=== PATIENT | male | born 1955 | race Caucasian/White ===

== ENCOUNTER 2017-10-01 11:50 | Emergency (ER) | payer OTHER, SELFPAY ==
[2017-10-01 11:53] VITALS: BP 185/96; PULSE 86; RESP 20; TEMP 36.8; O2SAT 98; BMI 28.1
[2017-10-01 11:55] VITALS: BP 185/96; PULSE 85
[2017-10-01] MEDS: NITROGLYCERIN 0.4 MG SL TAB SL ×3 (11:55→12:20)
[2017-10-01] MEDS: ASPIRIN 325 MG TABLET PO (11:55)
[2017-10-01] MEDS: fentaNYL 100 MCG/2 ML INJ 50 MCG IV (12:05)
--- NOTE | 2017-10-01 12:08 | DI.RAD.S_ITS ---
PROCEDURE: XR CHEST 1V INDICATIONS: chest pain TECHNIQUE: One view of the chest was acquired. COMPARISON: None. FINDINGS: Surgical changes and devices: None. Lungs and pleura: No pleural effusions or pneumothorax. Lungs are clear. Mediastinum: Mediastinal contours appear normal. Heart size is normal. Bones and chest wall: No suspicious bony lesions. Overlying soft tissues appear unremarkable. IMPRESSION: No acute cardiopulmonary findings. Dictated by: Lacie Estevez M.D. on 10/01/2017 at 12:42 Approved by: Lacie Estevez M.D. on 10/01/2017 at 12:42
[2017-10-01 12:14] LABS: Add Manual Diff / Slide Review NO; Basophils Percent Auto 0.6 % (0-2); Hematocrit 45.8 % (41-53); Lymphocytes Percent Auto 39.3 % (25-40); Mean Corpuscular Hemoglobin 30.6 PG (26-34); Mean Corpuscular Volume 87.5 fL (80-100); Monocytes Percent Auto 7.6 % (3-14); Neutrophils Absolute Auto 4100 /uL (3000-5900); Neutrophils Percent Auto 50.5 % (50-75); Platelet Count 234 X10^3/uL (150-400); Red Blood Cell Count 5.24 X10^6/uL (4.5-5.9); Red Cell Distribution Width 13.4 % (11.6-14.8); White Blood Cell Count 8.2 X10^3/uL (4.5-11.0)
[2017-10-01 12:15] VITALS: BP 150/96; PULSE 88
[2017-10-01 12:20] VITALS: BP 135/68; PULSE 92
[2017-10-01] MEDS: HEPARIN DRIP 25,000 UNIT/500 ML IV.SOLN 26.127 UNIT IV (12:21)
[2017-10-01 12:22] VITALS: BP 135/68; PULSE 92; RESP 25; O2SAT 99
[2017-10-01 12:23] VITALS: BP 135/68; PULSE 81; RESP 20; O2SAT 99
[2017-10-01 12:26] LABS: BUN Creatinine Ratio 27.8 (6-22); Blood Urea Nitrogen 25 mg/dL (9-20); Calcium 9.7 mg/dL (8.4-10.2); Carbon Dioxide 23 mmol/L (22-32); Chloride 103 mmol/L (98-107); Estimated Glomerular Filt Rate > 60.0 mL/min (>60); Glucose 152 mg/dL (70-100); HEMOLYSIS < 15 (0-50); Potassium 3.5 mmol/L (3.4-5.1); Sodium 141 mmol/L (137-145)
[2017-10-01 12:38] LABS: Troponin I 0.019 ng/mL (0.01-0.034)
--- NOTE | 2017-10-01 12:42 | ED_ITS ---
HPI - Chest Pain General Chief Complaint: Chest Pain Stated Complaint: chest pain Time Seen by Provider: 10/01/17 12:04 History of Present Illness HPI narrative: HPI 61-year-old male presents for evaluation of 2+ hours of sharp, burning substernal chest pain rating to the bilateral arms and jaw without clear provoking or relieving factors. Patient notes a 10 year history of smoking in his youth, and a prior surgical resection for diverticulitis. Denies HTN, HLD, DM. M/S/F/SocHx notable for: please see HPI; remainder reviewed with patient and in chart. ROS: Negative constitutional, eye, cardiovascular, pulmonary, GI, , MSK, skin , neurologic, psychiatric, endocrine unless noted in the HPI. Exam Gen: pleasant, unwell appearing, resting in distress. HEENT: NC, AT, PEERL, EOMI. Resp: Clear to auscultation bilaterally, normal work of breathing, no accessory muscle usage. Card: Regular rate and rhythm with no murmurs, rubs, or gallops, extremities warm and well perfused. GI: Non-tender to palpation throughout all quadrants, no focal tenderness at McBurney's point, negative Morgan's sign, non-distended, no rebound or guarding. : No suprapubic tenderness to palpation. MSK: No visible deformities, strength and tone without visually appreciable deficit. Skin: Normal color with no visible lesions. Neuro: AO x 3, no facial asymmetry, vision and hearing WNL. Psych: Mood and affect appropriate. Labs / Imaging: EKG (11:56 AM): SR 90 bpm, [address] elevation in lead II, [address] elevation in lead III, [address] elevation aVF, [address] depression in V1, [address] depression in V2, [address] depression in V3, [address] depression in V4, [address] elevation in V6. WBC 8.2, Hb 16.0, sodium 141, potassium 3.5, troponin 0.019. CXR: No acute cardiopulmonary disease process. No focal infiltrate, cardiomegaly , rib fractures, or mediastinal widening, lung markings extend to the periphery bilaterally and there are no deep sulci. Radiologist's read pending. MDM Previous chart, nursing note, labs, imaging, and vitals reviewed. A: 61-year-old male presents for evaluation of 2+ hours of sharp, burning substernal chest pain rating to the bilateral arms and jaw without clear provoking or relieving factors. DDx: STEMI, NSTEMI, PE, dissection, Gerd, gastritis. Evaluation: EKG consistent with STEMI. Aspirin given, blood pressure elevated, nitroglycerin x 3 given with decrease in pain, IV fluids on for pressure support if needed (not required). Patient given fentanyl 50 ?g for pain control. Discussed patient at approximately 12:[address] Parker at [facility] who accepted the patient. EKG transmitted jointly reviewed. Heparin bolus followed by gtt ordered. Further antiplatelet agents declined by accepting facility. Patient transferred by ALS. Impression: STEMI (please reference below for remainder of encounter information) Critical Care Time Organ system(s): Cardiopulmonary Intervention: Assessment of the patient, interpretation of studies, communication related to patient care. Time: 30 minutes were spent directly related to patient care exclusive of separately billed procedures. Related Data Allergies Allergy/AdvReac Type Severity Reaction Status Date / Time codeine Allergy Verified 10/01/17 12:19 wool Allergy Verified 10/01/17 12:20 [facility] Social History Smoking Status: Former smoker Exam Initial Vital Signs Initial Vital Signs: Vital Signs Temperature 98.3 F 10/01/17 11:53 Pulse Rate 86 10/01/17 11:53 Respiratory Rate 20 10/01/17 11:53 Blood Pressure 185/96 H 10/01/17 11:53 Pulse Oximetry 98 10/01/17 11:53 Course Orders Ordered: ED Orders 10/01/17 11:55 EKG-12 Lead Routine 10/01/17 12:05 Basic Metabolic Panel Stat Complete Blood Count AUTO DIFF Stat Troponin I Stat 10/01/17 12:08 XR chest 1V Stat Fentanyl (Sublimaze) 50 mcg IV Q1H PRN PRN Reason: Pain, Severe Last Admin: 10/01/17 12:05 Dose: 50 mcg Heparin Sodium/Dextrose (Heparin Drip) 25,000 unit in 500 mls @ 26.127 mls/hr IV CONT NATE; Protocol Last Infusion: 10/01/17 12:23 Dose: 16 units/kg/hr, 26.127 mls/hr Admin: 10/01/17 12:21 Dose: 16 units/kg/hr, 26.127 mls/hr Discontinued Medications Aspirin (Aspirin) 325 mg PO NOW ONE Stop: 10/01/17 11:56 Last Admin: 10/01/17 11:55 Dose: 325 mg Heparin Sodium (Porcine) (Heparin) 5,000 unit IV NOW ONE Stop: 10/01/17 12:09 Last Admin: 10/01/17 12:21 Dose: Not Given Nitroglycerin (Nitrostat) 0.4 mg SL [id number] PRN PRN Reason: Chest Pain Last Admin: 10/01/17 12:20 Dose: 0.4 mg Admin: 10/01/17 12:15 Dose: 0.4 mg Admin: 10/01/17 11:55 Dose: 0.4 mg Vital Signs - 8 hr 10/01/17 11:53 10/01/17 11:55 10/01/17 12:15 Temperature 98.3 F Pulse Rate 86 85 88 Respiratory Rate 20 Blood Pressure 185/96 H 185/96 H 150/96 H Blood Pressure [Left Arm] Pulse Oximetry 98 10/01/17 12:20 10/01/17 12:22 10/01/17 12:23 Temperature Pulse Rate 92 H 92 H 81 Respiratory Rate 25 H 20 Blood Pressure 135/68 H 135/68 H Blood Pressure [Left Arm] 135/68 H Pulse Oximetry 99 99 MDM - Chest Pain Lab Data Result diagrams: 10/01/17 12:05 10/01/17 12:05 Lab Results 10/01/17 10/01/17 Range/Units 12:05 12:05 WBC 8.2 (4.5-11.0) X10^3/uL RBC 5.24 (4.5-5.9) X10^6/uL Hgb 16.0 (13.5-17.5) g/dL Hct 45.8 (41-53) % MCV 87.5 (80-100) fL MCH 30.6 (26-34) PG MCHC 35.0 (30-36) % RDW 13.4 (11.6-14.8) % Plt Count 234 (150-400) X10^3/uL Neut % (Auto) 50.5 (50-75) % Lymph % (Auto) 39.3 (25-40) % [place] % (Auto) 7.6 (3-14) % Eos % (Auto) 2.0 (2-4) % Baso % (Auto) 0.6 (0-2) % Neut # (Auto) 4100 (5829-6644) /uL Sodium 141 (137-145) mmol/L Potassium 3.5 (3.4-5.1) mmol/L Chloride 103 (98-107) mmol/L Carbon Dioxide 23 (22-32) mmol/L BUN 25 H (9-20) mg/dL Creatinine 0.90 (0.66-1.25) mg/dL Estimated GFR > 60.0 (>60) mL/min BUN/Creatinine Ratio 27.8 H (6-22) Glucose 152 H (70-100) mg/dL Calcium 9.7 (8.4-10.2) mg/dL Troponin I 0.019 (0.01-0.034) ng/mL Discharge Plan Departure Interventions: ED Discharge Assessment Last Done: 10/01/17 12:23
--- NOTE | 2017-10-01 12:52 | PC.NURSE ---
report given to osbaldo early at lab rn.
--- NOTE | 2017-10-01 12:57 | PC.NURSE ---
heparin bolus 4,000units , followed with heparin drip at 800units, 16ml /hr via pump cardiac protocol per dr osorio.
== END 2017-10-01 12:24 | disposition short-term general hospital (02) ==
PROVIDERS: Emergency Provider Emergency Medicine
DX: I21.3 ST elevation (STEMI) myocardial infarction of unspecified site (principal)
CPT/HCPCS: 36591; 71045; 80048; 82962; 84484; 85025; 93005; 96374; 96375; 99283; 99285; J1644; J3010

== ENCOUNTER → 2019-09-17 16:03 | Outpatient (CLI) | payer OTHER, SELFPAY ==
--- NOTE | 2019-09-17 | DI.US.S_ITS ---
PROCEDURE: US CAROTID DOPPLER BI INDICATIONS: Atherosclerotic heart disease of [place] coronary a TECHNIQUE: Color and pulse Doppler interrogation was performed of both carotid systems, with image documentation and velocity measurements. COMPARISON: None. FINDINGS: Stenosis calculations are based on SRU (Society of Radiologists in Ultrasound) criteria. The flow velocities and the arterial waveforms are normal within both carotid arterial systems. Atherosclerotic plaque is seen on both sides. The estimated degree of internal carotid artery stenosis is less than 50%. Antegrade flow is confirmed within both vertebral arteries. IMPRESSION: No hemodynamically significant stenosis is seen. Atherosclerotic plaque is noted bilaterally. Dictated by: Mason Dumont M.D. on 09/17/2019 at 17:01 Approved by: Mason Dumont M.D. on 09/17/2019 at 17:02
== END ==
PROVIDERS: Referring Provider Family Medicine; Visit Provider Family Medicine
DX: I25.10 Atherosclerotic heart disease of native coronary artery without angina pectoris (principal); H53.47 Heteronymous bilateral field defects
CPT/HCPCS: 93880

== ENCOUNTER → 2022-12-23 14:05 | Outpatient (CLI) | payer MEDICARE, OTHER, SELFPAY ==
[2022-12-23 16:10] LABS: Alanine Aminotransferase 34 IU/L (<50); Albumin 4.1 g/dL (3.5-5.0); Albumin Globulin Ratio 1.6 (1.0-2.8); Alkaline Phosphatase 44 U/L (38-126); Amylase 111 U/L (30-110); Aspartate Aminotransferase 35 IU/L (17-59); BUN Creatinine Ratio 18.6 (6-22); Bilirubin Total 0.5 mg/dL (0.2-1.3); Blood Urea Nitrogen 22 mg/dL (9-20); Carbon Dioxide 28 mmol/L (22-32); Chloride 103 mmol/L (98-107); Estimated Glomerular Filt Rate > 60 mL/min (>60); Globulin 2.5 g/dL (1.7-4.1); Glucose 95 mg/dL (80-110); HEMOLYSIS < 15 (0-50); Potassium 3.9 mmol/L (3.4-5.1); Sodium 139 mmol/L (137-145); Total Protein 6.6 g/dL (6.3-8.2)
[2022-12-23 16:40] LABS: Prostate Specific Antigen Scrn 0.865 ng/mL (0.1-4.0)
[2022-12-23 16:41] LABS: TSH w/ Reflex to FT4 0.46 uIU/mL (0.47-4.68)
[2022-12-23 20:19] LABS: Free T4, Direct Thyroxine 1.04 ng/dL (0.78-2.19)
== END ==
PROVIDERS: PCP Family Medicine; Referring Provider Family Medicine; Visit Provider Family Medicine
DX: Z00.00 Encounter for general adult medical examination without abnormal findings (principal); Z12.5 Encounter for screening for malignant neoplasm of prostate; K21.9 Gastro-esophageal reflux disease without esophagitis; I10 Essential (primary) hypertension
CPT/HCPCS: 36415; 80053; 82150; 84439; 84443; G0103

== ENCOUNTER → 2023-01-23 13:40 | Outpatient (CLI) | payer MEDICARE, OTHER, SELFPAY ==
[2023-01-23 16:53] LABS: Free T3, Triiodothyronine Free 4.11 pg/mL (2.77-5.27); Free T4, Direct Thyroxine 0.98 ng/dL (0.78-2.19)
[2023-01-23 17:07] LABS: Thyroid Stimulating Hormone 0.647 uIU/mL (0.47-4.68)
== END ==
PROVIDERS: PCP Family Medicine; Referring Provider Family Medicine; Visit Provider Family Medicine
DX: Z00.00 Encounter for general adult medical examination without abnormal findings (principal)
CPT/HCPCS: 36415; 84439; 84443; 84481

== ENCOUNTER → 2023-01-25 06:38 | Outpatient (CLI) | payer MEDICARE, OTHER, SELFPAY ==
--- NOTE | 2023-01-25 06:39 | DI.US.S_ITS ---
PROCEDURE: US ABDOMEN COMPLETE INDICATIONS: refractory gerd TECHNIQUE: Real-time scanning was performed of the abdominal and retroperitoneal organs, with image documentation. COMPARISON: None. FINDINGS: Liver: Increased echogenicity. No solid mass. Gallbladder: Unremarkable. Biliary ducts: Intrahepatic bile ducts are non-dilated. Extrahepatic bile duct caliber measures 3.7 mm. Normal is 6-7 mm or less in diameter, or 10 mm or less post-cholecystectomy. Pancreas: Not visualized due to overlying bowel gas. Miscellaneous: No free abdominal fluid. IMPRESSION: Increased liver echogenicity, likely mild hepatic steatosis. Unremarkable gallbladder. Dictated by: Howard Serrano M.D. on 01/25/2023 at 8:20 Approved by: Howard Serrano M.D. on 01/25/2023 at 8:23
== END ==
PROVIDERS: PCP Family Medicine; Referring Provider Family Medicine; Visit Provider Family Medicine
DX: K21.9 Gastro-esophageal reflux disease without esophagitis (principal); Z80.0 Family history of malignant neoplasm of digestive organs
CPT/HCPCS: 76705

== ENCOUNTER → 2023-06-27 09:18 | Outpatient (CLI) | payer MEDICARE, OTHER, SELFPAY ==
[2023-06-27 10:02] LABS: Add Manual Diff / Slide Review NO; Basophils Absolute Auto 0 /uL (0-100); Basophils Percent Auto 0.6 % (0-2); Eosinophils Absolute Auto 100 /uL (0-450); Eosinophils Percent Auto 1.8 % (2-4); Hemoglobin 14.7 g/dL (13.5-17.5); Lymphocytes Absolute Auto 2200 /uL (1100-4500); Lymphocytes Percent Auto 28.7 % (25-40); Mean Corpuscular HGB Conc 34.9 % (30-36); Mean Corpuscular Hemoglobin 30.7 PG (26-34); Mean Corpuscular Volume 88.2 fL (80-100); Monocytes Absolute Auto 700 /uL (0-900); Monocytes Percent Auto 9.5 % (3-14); Neutrophils Absolute Auto 4500 /uL (1500-7000); Neutrophils Percent Auto 59.4 % (50-75); Platelet Count 242 X10^3/uL (150-400); Red Blood Cell Count 4.77 X10^6/uL (4.5-5.9); Red Cell Distribution Width 13.6 % (11.6-14.8); White Blood Cell Count 7.5 X10^3/uL (4.5-11.0)
== END ==
PROVIDERS: PCP Family Medicine; Referring Provider Family Medicine; Visit Provider Family Medicine
DX: K57.92 Diverticulitis of intestine, part unspecified, without perforation or abscess without bleeding (principal); Z90.49 Acquired absence of other specified parts of digestive tract
CPT/HCPCS: 36415; 85025

== ENCOUNTER 2023-07-03 17:50 | Emergency (ER) | payer MEDICARE, OTHER, SELFPAY ==
[2023-07-03] VITALS (7 sets, daily range): BP systolic 103–182; BP diastolic 62–92; PULSE 64–77; RESP 16–18; TEMP 36.8; O2SAT 95–97; BMI 25.2
[2023-07-03 18:57] LABS: Add Manual Diff / Slide Review NO; Basophils Absolute Auto 0 /uL (0-100); Basophils Percent Auto 0.5 % (0-2); Eosinophils Absolute Auto 200 /uL (0-450); Eosinophils Percent Auto 2.6 % (2-4); Hematocrit 43.6 % (41-53); Hemoglobin 15.1 g/dL (13.5-17.5); Lymphocytes Absolute Auto 2500 /uL (1100-4500); Lymphocytes Percent Auto 33.2 % (25-40); Mean Corpuscular HGB Conc 34.7 % (30-36); Mean Corpuscular Hemoglobin 30.8 PG (26-34); Mean Corpuscular Volume 88.9 fL (80-100); Monocytes Absolute Auto 800 /uL (0-900); Monocytes Percent Auto 10.6 % (3-14); Neutrophils Absolute Auto 4000 /uL (1500-7000); Neutrophils Percent Auto 53.1 % (50-75); Platelet Count 229 X10^3/uL (150-400); Red Blood Cell Count 4.91 X10^6/uL (4.5-5.9); Red Cell Distribution Width 13.7 % (11.6-14.8); White Blood Cell Count 7.6 X10^3/uL (4.5-11.0)
[2023-07-03 18:59] LABS: Prothrombin Time 11.4 SECONDS (9.4-12.5)
[2023-07-03 19:02] LABS: PTT Partial Thromboplastin Tim 29 SECONDS (25.1-36.5)
[2023-07-03 19:06] LABS: Alanine Aminotransferase 50 IU/L (<50); Albumin Globulin Ratio 1.4 (1.0-2.8); Alkaline Phosphatase 40 U/L (38-126); Aspartate Aminotransferase 50 IU/L (17-59); BUN Creatinine Ratio 22.2 (6-22); Bilirubin Total 0.5 mg/dL (0.2-1.3); Blood Urea Nitrogen 28 mg/dL (9-20); Calcium 9.1 mg/dL (8.4-10.2); Carbon Dioxide 27 mmol/L (22-32); Chloride 106 mmol/L (98-107); Estimated Glomerular Filt Rate > 60 mL/min (>60); Globulin 2.8 g/dL (1.7-4.1); Glucose 100 mg/dL (80-110); HEMOLYSIS < 15 (0-50); Potassium 3.6 mmol/L (3.4-5.1); Sodium 138 mmol/L (137-145); Total Protein 6.8 g/dL (6.3-8.2)
--- NOTE | 2023-07-03 23:59 | ED.GENADULT ---
HPI - General Adult General Chief complaint: Abdominal Pain Stated complaint: black stool/smelt like tar Time Seen by Provider: 07/03/23 23:45 Source: patient and family Mode of arrival: Ambulatory History of Present Illness HPI narrative: 67-year-old gentleman with a history of coronary artery disease, hypertension, hyperlipidemia, previous diverticulitis with colon resection who was started on Cipro and Flagyl 4 days ago for presumed developing diverticulitis. Shortly after starting the antibiotics he noticed that he was having very black stool. He was not having any nausea, vomiting, diarrhea. No red blood. He has never had upper GI bleeding before he notes that he does have a history of chronic reflux. He has not orthostatic, tachycardic and he did note that shortly after starting the antibiotics is left lower quadrant pain did begin to improve. Related Data Home Medications Medication Instructions Recorded Confirmed aspirin 81 mg tablet,delayed 81 mg PO 10/04/22 06/26/23 release atorvastatin 80 mg tablet 80 mg PO 10/04/22 06/26/23 lisinopril 5 mg tablet 5 mg PO 10/04/22 06/26/23 metoprolol succinate 25 mg 25 mg PO 10/04/22 06/26/23 tablet,extended release 24 hr nitroglycerin 0.4 mg sublingual 0.4 mg sublingual PRN 10/04/22 06/26/23 tablet Previous Rx's Medication Instructions Recorded ciprofloxacin HCl 250 mg tablet 250 mg PO BID 7 days #14 tabs 06/29/23 metronidazole 250 mg tablet 250 mg PO BID 7 days #14 tabs 06/29/23 Allergies Allergy/AdvReac Type Severity Reaction Status Date / Time codeine Allergy Verified 06/26/23 15:11 wool Allergy Verified 06/26/23 15:11 Review of Systems Review of Systems Narrative: Pertinent positive and negative findings as per HPI Patient History Medical History Diverticulitis Diverticulosis Family history of Crohn's disease Family history of pancreatic cancer Family history of prostate cancer History of basal cell carcinoma Hyperlipidemia Hypertension CAD (coronary artery disease) Surgical History History of partial colectomy Social History Smoking Status: Former smoker Smoking Status: Former smoker alcohol intake frequency: other Substance Use Type: does not use Exam Initial Vital Signs Initial Vital Signs: Vital Signs Temperature 98.3 F 07/03/23 18:08 Pulse Rate 76 07/03/23 18:08 Respiratory Rate 16 07/03/23 18:08 Blood Pressure 182/92 H 07/03/23 18:08 Pulse Oximetry 97 07/03/23 18:08 Oxygen Delivery Method Room Air 07/03/23 18:08 General: Healthy appearing, in no acute distress. Able to give a complete and coherent history. Well-nourished well-developed HEENT: Moist mucous membranes, normal sclera with reactive pupils, Neck: No JVD, supple Respiratory: Lungs are clear to auscultation, no wheezing no rales no rhonchi. Full and symmetrical air movement Cardiac: Regular rate and rhythm no murmurs no bruits Abdomen: Soft, mild tenderness in the left lower quadrant without rebound or guarding, good bowel tones, no flank pain. Stool is guaiac negative Skin: Warm and dry, no rashes Neurologic: Grossly neurologically intact with no obvious asymmetries or abnormalities Extremities: No trauma, well perfused Psych: Cooperative, appropriate insight and affect Course Orders Ordered: ED Orders 07/03/23 18:20 EKG-12 Lead Stat 07/03/23 18:24 Complete Blood Count AUTO DIFF Stat Comprehensive Metabolic Panel Stat PTT Partial Thromboplastin Benjamni Stat Prothrombin Time INR Stat Type and Screen Stat Ondansetron HCl (Ondansetron 4 Mg/2 Ml Inj) 4 mg IV NOW PRN PRN Reason: Nausea And Vomiting Ondansetron HCl (Ondansetron 4 Mg Odt) 4 mg SL NOW PRN PRN Reason: Nausea And Vomiting Discontinued Medications Pantoprazole Sodium (Pantoprazole 40 Mg Vial) 80 mg IV NOW ONE Stop: 07/03/23 18:21 Vital Signs Vital signs: Vital Signs - 8 hr 07/03/23 18:08 07/03/23 21:28 07/03/23 21:29 Temperature 98.3 F Pulse Rate 76 77 72 Respiratory Rate 16 16 Blood Pressure 182/92 H Pulse Oximetry 97 97 96 Oxygen Delivery Method Room Air Room Air 07/03/23 21:29 07/03/23 21:30 07/03/23 21:30 Temperature Pulse Rate 70 Respiratory Rate Blood Pressure 119/69 120/73 Pulse Oximetry 96 Oxygen Delivery Method 07/03/23 22:00 07/03/23 22:00 07/03/23 22:30 Temperature Pulse Rate 67 Respiratory Rate 18 Blood Pressure 111/71 113/71 Pulse Oximetry 96 Oxygen Delivery Method Room Air 07/03/23 22:30 07/03/23 23:00 07/03/23 23:00 Temperature Pulse Rate 69 64 Respiratory Rate 17 Blood Pressure 103/62 Pulse Oximetry 96 95 Oxygen Delivery Method Room Air Room Air Medical Decision Making Lab Data 07/03/23 18:24 07/03/23 18:24 Labs: Lab Results 07/03/23 Range/Units 18:24 WBC 7.6 (4.5-11.0) X10^3/uL RBC 4.91 (4.5-5.9) X10^6/uL Hgb 15.1 (13.5-17.5) g/dL Hct 43.6 (41-53) % MCV 88.9 (80-100) fL MCH 30.8 (26-34) PG MCHC 34.7 (30-36) % RDW 13.7 (11.6-14.8) % Plt Count 229 (150-400) X10^3/uL Neut % (Auto) 53.1 (50-75) % Lymph % (Auto) 33.2 (25-40) % [place] % (Auto) 10.6 (3-14) % Eos % (Auto) 2.6 (2-4) % Baso % (Auto) 0.5 (0-2) % Neut # (Auto) 4000 (4381-3413) /uL Lymph # (Auto) 2500 (7075-6042) /uL [place] # (Auto) 800 (0-900) /uL Eos # (Auto) 200 (0-450) /uL Baso # (Auto) 0 (0-100) /uL PT 11.4 (9.4-12.5) SECONDS INR 1.0 (0.9-1.3) APTT 29 (25.1-36.5) SECONDS Sodium 138 (137-145) mmol/L Potassium 3.6 (3.4-5.1) mmol/L Chloride 106 (98-107) mmol/L Carbon Dioxide 27 (22-32) mmol/L BUN 28 H (9-20) mg/dL Creatinine 1.26 H (0.66-1.25) mg/dL Estimated GFR > 60 (>60) mL/min BUN/Creatinine Ratio 22.2 H (6-22) Glucose 100 (80-110) mg/dL Calcium 9.1 (8.4-10.2) mg/dL Total Bilirubin 0.5 (0.2-1.3) mg/dL AST 50 (17-59) IU/L ALT 50 H (<50) IU/L Alkaline Phosphatase 40 (38-126) U/L Total Protein 6.8 (6.3-8.2) g/dL Albumin 4.0 (3.5-5.0) g/dL Globulin 2.8 (1.7-4.1) g/dL Albumin/Globulin Ratio 1.4 (1.0-2.8) Blood Type A Positive Antibody Screen Negative MDM Narrative Medical decision making narrative: CC: Black stool Complicating co-morbidities: Currently on day 4 of Cipro and Flagyl for diverticulitis Data collected from: patient Medical records reviewed: Primary care notes are reviewed Differential considered: Upper GI bleed, stool changes secondary to ingestion or antibiotics Exam documented above, pertinent findings include: Exam is benign, stool is dark brown and not guaiac-positive today Lab Test results independently reviewed as above. Pertinent findings: CBC shows no significant leukocytosis. H and H is 15.1 and 43.6 Chemistries show a slight bump in creatinine currently at 1.26 GFR is still greater than 60. Remainder of chemistries are unremarkable Discussion: Given the lack of symptoms, improving left lower quadrant pain and guaiac-negative stool, this 67-year-old gentleman is reassured and discharged home. At this point there is no evidence of upper GI bleeding or lower GI bleeding. He likely does have mild diverticulitis and is improving with current antibiotics. He has a appropriate follow up with his outpatient provider as well as colonoscopy scheduled for next month. Questions are answered and he is safe for discharge Discharge Plan Departure Patient Disposition: Home Clinical Impression: Acute diverticulitis Instructions: DI for Diverticulitis Activity Restrictions/Additional Instructions: Thank you for coming in today Your blood work was very reassuring. There was no evidence of acute infection or sepsis. No evidence of significant anemia. Kidney function is appropriate Your black stool is likely due to the antibiotics that you are appropriately taking for your clinical diverticulitis. You are stool sample today did not show any blood in the stool I do think it is appropriate that you complete the course of the antibiotics that you are currently taking. The next appropriate follow up will be a colonoscopy which is scheduled in July If you find that you are getting worse or develop any new symptoms, please feel free to return to the emergency department for further evaluation. Prescriptions: No Action ciprofloxacin HCl 250 mg tablet 250 mg PO BID 7 Days Qty: 14 0RF Rx Instructions: take atorvastatin every other day while on this prescription metronidazole 250 mg tablet 250 mg PO BID 7 Days Qty: 14 0RF metoprolol succinate 25 mg tablet extended release 24 hr 25 mg PO lisinopril 5 mg tablet 5 mg PO atorvastatin 80 mg tablet 80 mg PO aspirin 81 mg tablet,delayed release (DR/EC) 81 mg PO nitroglycerin 0.4 mg tablet, sublingual 0.4 mg sublingual PRN Referrals: Garret Guillen DO [Primary Care Provider] - Stand Alone Forms: Patient Portal/API
[2023-07-04 00:06] VITALS: O2SAT 96
[2023-07-04 00:07] VITALS: BP 149/83; PULSE 70; RESP 18; O2SAT 96
== END 2023-07-04 00:11 | disposition home or self-care (01) ==
PROVIDERS: Emergency Provider Emergency Medicine; PCP Family Medicine
DX: K57.92 Diverticulitis of intestine, part unspecified, without perforation or abscess without bleeding (principal); R10.32 Left lower quadrant pain; Z79.899 Other long term (current) drug therapy
CPT/HCPCS: 36415; 80053; 85025; 85610; 85730; 86850; 86900; 86901; 93005; 93010; 99283; 99284

== ENCOUNTER 2023-09-26 12:43 | Day surgery (SDC) | payer MEDICARE, OTHER, SELFPAY ==
--- NOTE | 2023-09-26 | PATH_ITS ---
[facility] Accession Number: [id number] No. of containers..01 Tissue . 01 Material submitted: . colon - SIGMOID POLYP . 01 Diagnosis: SIGMOID COLON POLYP: Colonic mucosa with prominent benign lymphoid aggregate. Negative for serrated lesion, dysplasia, or malignancy. Additional step sections examined. [facility] 10/02/2023 1107 Local . 01 Electronically signed: . Alexander Huang MD, PhD, Pathologist NPI- [id number] . 01 Gross description: . Received in formalin with two identifiers and sigmoid polyp, is a single malone soft tissue fragment, 0.5 cm in greatest dimension. Submitted entirely in A1. ([id number]) /MRV 09/28/2023 1853 Local . 01 Pathologist provided ICD-10: K63.5 . 01 CPT . 981674 Specimen Comment: A courtesy copy of this report has been sent to [phone] Performed at: [address] [facility] [id number], [place], [place] [id number] MD Manpreet Colin MD Phone: [phone]
[2023-09-26 11:41] VITALS: BP 111/75; PULSE 94; RESP 14; TEMP 36.3; O2SAT 96
[2023-09-26] MEDS: LACTATED RINGERS 1,000 ML 100 ML IV (13:06)
[2023-09-26 13:15] VITALS: BP 160/90; PULSE 91; RESP 16; O2SAT 99
--- NOTE | 2023-09-26 13:51 | P.HP_ITS ---
History of Present Illness History of Present Illness Date Patient Seen: 09/26/23 Time Patient Seen: 13:51 Chief complaint: Dx Colonoscopy w/poss bx Narrative: 67-year-old man history of diverticular disease status post resection here for screening colonoscopy. Last colonoscopy greater than 10 years ago. No family history of intestinal malignancy. No acute abdominal concerns he had a possible episode of diverticulitis several months ago that resolved with conservative therapy. [facility] Medical History Acute maxillary sinusitis Diverticulitis Diverticulosis Family history of Crohn's disease Family history of pancreatic cancer Family history of prostate cancer History of basal cell carcinoma Hyperlipidemia Hypertension CAD (coronary artery disease) Surgical History History of partial colectomy Social History Smoking Status: Former smoker Meds Home Medications and Allergies Home Medications Medication Instructions Recorded Confirmed Type aspirin 81 mg tablet,delayed 81 mg PO DAILY 10/04/22 09/26/23 History release atorvastatin 80 mg tablet 80 mg PO DAILY 10/04/22 09/26/23 History metoprolol succinate 25 mg 25 mg PO DAILY 10/04/22 09/26/23 History tablet,extended release 24 hr nitroglycerin 0.4 mg sublingual 0.4 mg sublingual PRN 10/04/22 08/02/23 History tablet benzonatate 100 mg capsule 100 mg PO BID-TID PRN cough #60 08/02/23 08/02/23 Rx caps ergocalciferol (vitamin D2) 50 mcg 50 mcg PO DAILY 08/02/23 08/02/23 History (2,000 unit) capsule ezetimibe 10 mg tablet 10 mg PO DAILY 08/02/23 08/02/23 History sodium,potassium,mag sulfates 17.5 See Rx Instructions PO .COMPLEX 09/15/23 Rx gram-3.13 gram-1.6 gram oral soln #354 mL (Suprep Bowel Prep Kit) Allergies Allergy/AdvReac Type Severity Reaction Status Date / Time codeine Allergy Verified 09/26/23 13:09 wool Allergy Verified 09/26/23 13:09 Exam Vital Signs (past 8 hours): - 05/28/24 13:15 Pulse Rate 91 H Respiratory Rate 16 Blood Pressure 160/90 H Pulse Oximetry 99 Oxygen Delivery Method Room Air Oxygen Delivery Method Room Air Narrative Exam Narrative: General adult man alert oriented no acute distress Chest nonlabored respiration Extremities warm well perfused Assessment & Plan Assessment & Plan narrative: The patient requires colorectal screening and colonoscopy is recommended. Technical details were discussed. Risks, benefits, alternatives explained. Risks including but not limited to myocardial infarction, aspiration, bleeding, pain, missed lesion, incomplete examination, need for further radiographic studies, intestinal injury, and need for major abdominal surgery were discussed. All questions were answered to their satisfaction, and they are in agreement with this plan.
[2023-09-26 14:20] VITALS: BP 101/68; PULSE 70; RESP 16; TEMP 36.3; O2SAT 94
--- NOTE | 2023-09-26 14:24 | P.OP.COLON_ITS ---
Operative Date/Time/Diagnoses Date of procedure: 09/26/23 Time of procedure: 14:24 Pre-op diagnosis: Colorectal screening Post-op diagnosis: other (Colonic polyp) Procedure & Clinicians Study performed: Colonoscopy and polypectomy Same procedure as scheduled: Yes Indications: Colorectal screening Surgeon: Edvin Miner Procedure Notes Procedure in detail: The history and physical was performed/updated and the patient is ASA class is 2. The procedure was discussed in detail with the patient. Potential risks complications including infection, bleeding, missed diagnosis, perforation, need for surgery, and were explained. Their questions were answered and informed consent was obtained. Patient was brought to the procedure room and placed standard monitoring equipment. The patient's vital signs were monitored continuously throughout the entire procedure. Prior to starting time-out was performed. The patient was placed in the left lateral recumbent position. Procedural sedation was administered by anesthesia. Examination began with a thorough inspection of the perianal area there was no evidence of fissures, fistulae, external hemorrhoids or cutaneous malignancy. The colonoscopy scope was then placed into the anal canal and was advanced to the cecum, which was identified by the ileocecal valve, the appendiceal orifice and the confluence of the taenia. The scope was then slowly withdrawn examining colon thoroughly in all directions, irrigating it of any residual stool. The scope was retroflexed within the rectum The patient tolerated the procedure well. They will be discharged once criteria are met. The prep was of good/excellent quality. The withdrawl time was 7 minutes. FINDINGS * Descending colon 3 mm polyp removed with Jumbo forceps. * Few scattered large diverticulum * Normal colorectal anastomosis Specimen(s): other (Sigmoid/descending colon polyp) Impression: Colonic polyp x1 Post-procedure Recommendations: High fiber diet Plan for aftercare: Follow-up is dependent on pathology findings likely 5 years. Disposition: same day surgery
[2023-09-26 14:25] VITALS: BP 99/69; PULSE 72; RESP 14; O2SAT 93
[2023-09-26 14:30] VITALS: BP 95/63; PULSE 84; RESP 20; TEMP 36.3; O2SAT 94
[2023-09-26 14:35] VITALS: BP 110/79; PULSE 80; RESP 14; O2SAT 97
== END 2023-09-26 15:07 | disposition home or self-care (01) ==
PROVIDERS: PCP Family Medicine; Referring Provider Surgery; Visit Provider Surgery
PROC: 0DJD8ZZ Inspection of Lower Intestinal Tract, Via Natural or Artificial Opening Endoscopic (ICD-10-PCS; CPT 45378; principal; 2023-09-26 14:00)
DX: Z12.11 Encounter for screening for malignant neoplasm of colon (principal); K57.30 Diverticulosis of large intestine without perforation or abscess without bleeding; K63.5 Polyp of colon
CPT/HCPCS: 45380; J2704